=== PATIENT | male | born 1995 | race Caucasian/White ===

== ENCOUNTER 2020-08-06 11:42 | Emergency (ER) | payer OTHER, MEDICAID, SELFPAY ==
[2020-08-06 11:44] VITALS: BP 142/91; PULSE 113; RESP 12; TEMP 36.7; O2SAT 98; BMI 14.8
--- NOTE | 2020-08-06 12:09 | CT_ITS ---
WS: [id number] CT ABDOMEN AND PELVIS NONCONTRAST HISTORY: fever, abdominal pain TECHNIQUE: Imaging performed through the abdomen and pelvis. Coronal and sagittal reformats are submi tted. All CT scans at [facility] use at least one of these dose optimization techniques: automated exposure control; mA and/or kV adjustment per patient size (includes targeted exams where d ose is matched to clinical indication); or iterative reconstruction. DLP: 233.82 mGy.cm COMPARISON: None available. This study is compromised by significant motion. Lower thorax: There is a large dense round consolidation with spiculated margins in possible central necrosis in the LEFT lower lobe measuring 4.5 x 4.3 cm. Normal size heart. Liver: As visualized no abnormality. Gallbladder: Normal gallbladder. Pancreas: Poorly visualized. Spleen: Normal. Adrenal glands: Not visualized. Right kidney: No obstruction or hydronephrosis. Poorly visualized due to motion. Left kidney: No obstruction or hydronephrosis. Poorly visualized. Hypodense area in the central kidne y could be an area of nephritis. Aorta: Normal abdominal aorta, no aneurysm or atherosclerosis. No free fluid, intraperitoneal air or significant lymphadenopathy. GI tract: Diffuse constipation and obstipation. No obvious obstruction. Abdominal wall: Negative. No hernia. Pelvis: Normal. Osseous structures: Thoracolumbar scoliosis. CT/CT abdomen pelvis wo con [id number] IMPRESSION: 1. Quality of this examination is significantly limited by motion. 2. Dense area of rounded consolidation in the LEFT lower lobe. Masslike consol idation. With the patient's history and age differential includes pneumonia and neoplasm. Recommend follow-up imaging after treatment to ensure resolution and underlying mass. 3. Focal area of low attenuation in the LEFT kidney. Correlate for possible ne phritis. 4. Severe obstipation. Notified Vivian Kim MD [facility] [place] 08/06/2020 12:55 PM.
--- NOTE | 2020-08-06 12:09 | XR_ITS ---
WS: [id number] Portable AP upright chest, 08/06/2020 Clinical Data: fever Comparison: None. Findings: There is a patchy opacity in the left lower lobe obscuring the diaphragm which may represen t pneumonia and/or atelectasis. No effusion is seen. There are no nodules or masses. The heart is nor mal. There is a dextroscoliosis of the mid thoracic spine. No pneumothorax is seen. XR/XR chest 1V portable [id number] Impression: 1. Patchy opacity in left lower lobe which may represent atelectasis and/or pne umonia. 2. Normal heart and right lung.
[2020-08-06 12:18] VITALS: BP 135/80; PULSE 111; O2SAT 95
[2020-08-06 12:40] LABS: Basophils # 0.1 10^3/uL (0.0-0.1); Basophils % 0.5 %; Eosinophils # 0.1 10^3/uL (0.0-0.8); Eosinophils % 0.3 %; Hematocrit 45.1 % (42.0-52.0); Hemoglobin 14.3 g/dL (11.7-16.6); Lymphocytes # 1.5 10^3/uL (0.8-4.8); Mean Corpuscular HGB Conc 31.7 g/dL (30.0-36.0); Mean Corpuscular Hemoglobin 30.1 pg (28.0-34.0); Mean Corpuscular Volume 94.9 fL (80-94); Mean Platelet Volume 8.5 fL (7.4-10.4); Monocytes # 2.7 10^3/uL (0.2-0.9); Monocytes % 16.2 %; Neutrophils # 12.06 10^3/uL (1.8-7.7); Neutrophils % 73.7 %; Nucleated Red Blood Cells % 0 %; Platelet Count 223 10^3/cmm (130-400); Red Blood Count 4.75 10^6/uL (4.1-5.3); Red Cell Distribution Width 12.4 % (12.1-15.1); White Blood Count 16.4 10^3/uL (4.0-10.0)
--- NOTE | 2020-08-06 12:40 | ED_ITS ---
HPI - Anxiety General: Chief Complaint: Fever Stated Complaint: OFF AND ON FEVER SINCE . AB PAIN Time Seen by Provider: 08/06/20 11:56 Source: family (father) Mode of arrival: wheelchair Limitations: other (Patient with cerebral palsy) History of Present Illness: HPI narrative: The patient is a 25-year-old male with a history of cerebral palsy and who was brought into the emergency department by his father due to abdominal pain and fever. Fever started about 4 days ago and has been intermittent, they have been checking his pulse oximetry and he he has been saturating normally but his heart rate has been elevated. He also complained of left-sided abdominal pain. No nausea or vomiting. No diarrhea. He has been having regular bowel movements but the father says sev eral years ago he had similar symptoms and was constipated at the time so they have given him magnesium citrate even though his bowel movements have been normal. Because of the continued pain they brought him in to be evaluated. Associated symptoms: Reports fever(s); Deny vomiting Review of Systems General: Reports: ROS unobtainable due to medical condition Const: Reports: fever(s) GI: Reports: abdominal pain; Denies: vomiting, diarrhea or constipation Physical Exam Const: COMMON NORMALS: no acute distress, average body habitus, no limitations, healthy appearing, alert and well nourished HENMT: COMMON NORMALS: normocephalic, atraumatic and moist oral mucous membranes HEAD & SCALP: normocephalic and atraumatic Neck/C-Spine: COMMON NORMALS: no JVD Chest: COMMONS NORMALS: normal inspection of the chest and normal palpation of entire chest wall Resp: COMMON NORMALS: normal respiratory effort, No retractions, No use of accessory muscles, clear to auscultation bilaterally and percussion normal AUSCULTATION: clear to auscultation bilaterally PERCUSSION: percussion normal Cardio: COMMON NORMALS: no JVD, regular rate, regular rhythm, S1 normal heart sound present, S2 normal heart sound present, No gallops present (Cardio), No clicks present (Cardio), No murmurs present (Cardio), No rub (Cardio) and Peripheral pulses 2+ throughout RATE: regular rate RHYTHM: regular rhythm HEART SOUNDS: S1 normal heart sound present and S2 normal heart sound present PERIPHERAL PULSES: Peripheral pulses 2+ throughout GI: COMMON NORMALS: Normal to inspection, nondistended, normoactive bowel sounds present, Soft to palpation, non-tender, No hepatosplenomegaly present, no masses and no bruits PALPATION: Yes Soft to palpation and Yes No hepatosplenomegaly present : COMMON NORMALS: Yes no CVA tenderness BLADDER/KIDNEY EXAM: Yes no CVA tenderness Back/Pelvis: COMMON NORMALS: no CVA tenderness Extremity: COMMON NORMALS: normal to inspection, full ROM, capillary refill normal, no calf tenderness and no pedal edema Neuro: SENSORIUM/ORIENTATION: Yes alert Course Vital Signs: Vital signs: Vital Signs Temperature 98.0 F 08/06/20 11:44 Pulse Rate 104 H 08/06/20 15:44 Respiratory Rate 12 08/06/20 11:44 Blood Pressure 131/68 08/06/20 15:44 Pulse Oximetry 98 08/06/20 15:44 MDM - Anxiety MDM Narrative: Medical decision making narrative: This 25-year-old gentleman who has cerebral palsy was brought into the emergency department by his father with complaints of a fever and abdominal pain. Because of his cerebral palsy evaluation is difficult and he moves during imaging and during blood draws. His father did not want us to put in an IV and after his initial blood draw was only good for lactic acid and CBC his father did not want us to stick him anymore. He was also tested for influenza and COVID-19 and both were negative. Urinalysis was negative for UTI. Imaging showed left lower lobe pneumonia and possible nephritis, however because his UA is negative I will treat him only for the pneumonia. Discussed treatment options with the father including inpatient versus outpatient. He father opted for the patient to be treated outpatient. He is discharged home with a prescription for levofloxacin for 7 days. The father was strongly counseled to bring the patient back if his symptoms get any worse or if he does not get significantly better. He is also to repeat the chest x-ray in about 2 weeks to ensure that this is actually pneumonia and not a mass. The father voiced understanding and is in agreement with the plan. Medical Records: Attestation: I reviewed the patient's medical records. Imaging Data^: CT Abd/Pel: Attestation: I personally reviewed and interpreted this imaging study as follows: Radiologist's impression: [address] [address] [address] Scan Report Signed Patient: Su WOOD #: [id number] : 1995Acct#:[id number] Age/Sex: 25 / MADM Date: 08/06/20 Loc: ERRoom/Bed: Attending Dr: Ordering Provider/Ordering MD: Vivian Kim MD, GIANCARLO Date of Service: 08/06/20 Procedure(s): CT abdomen pelvis wo con [id number] Accession Number(s): [id number] Report Number: [id number] WS: [id number] CT ABDOMEN AND PELVIS NONCONTRAST HISTORY: fever, abdominal pain TECHNIQUE: Imaging performed through the abdomen and pelvis. Coronal and sagittal reformats are submitted. All CT scans at [facility] use at least one of these dose optimization techniques: automated exposure control; mA and/or kV adjustment per patient size (includes targeted exams where dose is matched to clinical indication); or iterative reconstruction. DLP: 233.82 mGy.cm COMPARISON: None available. This study is compromised by significant motion. Lower thorax: There is a large dense round consolidation with spiculated margins in possible central necrosis in the LEFT lower lobe measuring 4.5 x 4.3 cm. Normal size heart. Liver: As visualized no abnormality. Gallbladder: Normal gallbladder. Pancreas: Poorly visualized. Spleen: Normal. Adrenal glands: Not visualized. Right kidney: No obstruction or hydronephrosis. Poorly visualized due to motion. Left kidney: No obstruction or hydronephrosis. Poorly visualized. Hypodense area in the central kidney could be an area of nephritis. Aorta: Normal abdominal aorta, no aneurysm or atherosclerosis. No free fluid, intraperitoneal air or significant lymphadenopathy. GI tract: Diffuse constipation and obstipation. No obvious obstruction. Abdominal wall: Negative. No hernia. Pelvis: Normal. Osseous structures: Thoracolumbar scoliosis. CT/CT abdomen pelvis wo con [id number] IMPRESSION: 1. Quality of this examination is significantly limited by motion. 2. Dense area of rounded consolidation in the LEFT lower lobe. Masslike consolidation. With the patient's history and age differential includes pneumonia and neoplasm. Recommend follow-up imaging after treatment to ensure resolution and underlying mass. 3. Focal area of low attenuation in the LEFT kidney. Correlate for possible nephritis. 4. Severe obstipation. Notified Vivian Kim MD [facility] [place] at 08/06/2020 12:55 PM. Dictated By:Glendy Mandujano DO Signed By:Glendy Mandujano DOSigned Date/Time:08/06/205 DD/ 47 CXR: Attestation: I personally reviewed and interpreted this imaging study as follows: Radiologist's impression: [address] [address] XRay Report Signed Patient: Su WOOD #: [id number] : 1995Acct#:[id number] Age/Sex: 25 / MADM Date: 08/06/20 Loc: ERRoom/Bed: Attending Dr: Ordering Provider/Ordering MD: Vivian Kim MD, [facility] [place] Date of Service: 08/06/20 Procedure(s): XR chest 1V portable [id number] Accession Number(s): [id number] Report Number: [id number] WS: [id number] Portable AP upright chest, 08/06/2020 Clinical Data: fever Comparison: None. Findings: There is a patchy opacity in the left lower lobe obscuring the diaphragm which may represent pneumonia and/or atelectasis. No effusion is seen. There are no nodules or masses. The heart is normal. There is a dextroscoliosis of the mid thoracic spine. No pneumothorax is seen. XR/XR chest 1V portable [id number] Impression: 1. Patchy opacity in left lower lobe which may represent atelectasis and/or pneumonia. 2. Normal heart and right lung. Dictated By:Alicia Tomas MD Signed By:Alicia Tomas MDSigned Date/Time:08/06/20 125 DD/ 47 Lab Data: Attestation: I reviewed the patient's lab results. Labs: Lab Results 08/06/20 08/06/20 08/06/20 Range/Units 12:20 12:20 12:20 WBC 16.4 H (4.0-10.0) 10^3/ uL RBC 4.75 (4.1-5.3) 10^6/u L Hgb 14.3 (11.7-16.6) g/dL Hct 45.1 (42.0-52.0) % MCV 94.9 H (80-94) fL MCH 30.1 (28.0-34.0) pg MCHC 31.7 (30.0-36.0) g/dL RDW 12.4 (12.1-15.1) % Plt Count 223 (130-400) 10^3/c mm MPV 8.5 (7.4-10.4) fL Neut % (Auto) 73.7 % Lymph % (Auto) 9.0 % [place] % (Auto) 16.2 % Eos % (Auto) 0.3 % Baso % (Auto) 0.5 % Neut # (Auto) 12.06 H (1.8-7.7) 10^3/u L Lymph # (Auto) 1.5 (0.8-4.8) 10^3/u L [place] # (Auto) 2.7 H (0.2-0.9) 10^3/u L Eos # (Auto) 0.1 (0.0-0.8) 10^3/u L Baso # (Auto) 0.1 (0.0-0.1) 10^3/u L Nucleated RBC % (a uto) 0 % Nucleated RBCs # 0.0 /100WBC Sodium Cancelled Potassium Cancelled Chloride Cancelled Carbon Dioxide Cancelled Anion Gap Cancelled BUN Cancelled Creatinine Cancelled GFR Calculation Cancelled Glucose Cancelled Calculated Osmolal ity Cancelled Lactate 1.4 (0.5-2.2) mmol/L Calcium Cancelled Total Bilirubin Cancelled AST Cancelled ALT Cancelled Alkaline Phosphata se Cancelled C-Reactive Protein Cancelled Total Protein Cancelled Albumin Cancelled Globulin Cancelled Lipase Cancelled Procalcitonin Cancelled Urine Color (Yellow) Urine Appearance (CLEAR) Urine pH (5-7) Ur Specific Gravit y (1.005-1.030) Urine Protein (Negative) Urine Glucose (UA) (Normal) Urine Ketones (Negative) Urine Blood (Negative) Urine Nitrate (Negative) Urine Bilirubin (Negative) Urine Urobilinogen (Negative) mg/dL Ur Leukocyte Wendy ase (Negative) Urine RBC (0-2) /hpf Urine WBC (0-5) /hpf Ur Squamous Epith Cells (0-5) /hpf Amorphous Sediment Urine Bacteria (NONE) /hpf Urine Mucus /hpf Influenza Type A A g (Negative) Influenza Type B A g (Negative) SARS-CoV-2 Ag (Rap id) (Negative) 08/06/20 08/06/20 08/06/20 Range/Units 12:20 12:20 14:00 WBC (4.0-10.0) 10^3/ uL RBC (4.1-5.3) 10^6/u L Hgb (11.7-16.6) g/dL Hct (42.0-52.0) % MCV (80-94) fL MCH (28.0-34.0) pg MCHC (30.0-36.0) g/dL RDW (12.1-15.1) % Plt Count (130-400) 10^3/c mm MPV (7.4-10.4) fL Neut % (Auto) % Lymph % (Auto) % [place] % (Auto) % Eos % (Auto) % Baso % (Auto) % Neut # (Auto) (1.8-7.7) 10^3/u L Lymph # (Auto) (0.8-4.8) 10^3/u L [place] # (Auto) (0.2-0.9) 10^3/u L Eos # (Auto) (0.0-0.8) 10^3/u L Baso # (Auto) (0.0-0.1) 10^3/u L Nucleated RBC % (a uto) % Nucleated RBCs # /100WBC Sodium Potassium Chloride Carbon Dioxide Anion Gap BUN Creatinine GFR Calculation Glucose Calculated Osmolal ity Lactate (0.5-2.2) mmol/L Calcium Total Bilirubin AST ALT Alkaline Phosphata se C-Reactive Protein Total Protein Albumin Globulin Lipase Procalcitonin Urine Color Yellow (Yellow) Urine Appearance Sl hazy (CLEAR) Urine pH 7 (5-7) Ur Specific Gravit y 1.010 (1.005-1.030) Urine Protein Trace (Negative) Urine Glucose (UA) Norm (Normal) Urine Ketones 1+ H (Negative) Urine Blood Neg (Negative) Urine Nitrate Negative (Negative) Urine Bilirubin 1+ H (Negative) Urine Urobilinogen Norm (Negative) mg/dL Ur Leukocyte Wendy ase Negative (Negative) Urine RBC 0-4 H (0-2) /hpf Urine WBC 0-4 H (0-5) /hpf Ur Squamous Epith Cells 0-4 H (0-5) /hpf Amorphous Sediment Not Reportable Urine Bacteria 1+ H (NONE) /hpf Urine Mucus 3+ /hpf Influenza Type A A g Negative (Negative) Influenza Type B A g Negative (Negative) SARS-CoV-2 Ag (Rap id) Negative (Negative) Discharge Plan Discharge Patient Disposition: Home Clinical Impression: Obstipation Left lower lobe pneumonia Qualifiers: Pneumonia type: due to unspecified organism Qualified Code(s): J18.9 - Pneumonia, unspecified organism Condition: Stable Prescriptions: New levofloxacin 250 mg/10 mL solution 500 mg PO DAILY 7 Days Qty: 200 RF: 0 Continued baclofen 10 mg tablet 15 mg PO BID@09,22 RF: 0 magnesium citrate Solution See Rx Instructions .ROUTE .COMPLEX RF: 0 montelukast 10 mg tablet 10 mg PO DAILY@22 RF: 0 divalproex 125 mg capsule, delayed rel sprinkle See Rx Instructions .ROUTE .COMPLEX RF: 0 Claritin 10 mg Tablet 10 mg PO DAILY@09 RF: 0 Maryruths Liquid Multimineral See Rx Instructions .ROUTE .COMPLEX RF: 0 Maryruths Liquid Vitamins See Rx Instructions .ROUTE .COMPLEX RF: 0 Discharge Orders: Discharge ED (Routine); Ordered 08/06/20 Ordered By: Vivian Kim Discharge Diet: Usual diet Discharge Activity: Resume usual activity Patient Instructions: Community-acquired Pneumonia (ED), Obstipation (ED) Activity Restrictions/Additional Instructions: Return for any new or worsening symptoms. Give him the antibiotics as prescribed. Also continue with the magnesium citrate as he has severe constipation. You may also want to try stool softener to assist with bowel movements. Coding Level of Care Code ED Cake Press Operator for Christina Fwd Exam Comprehensive
[2020-08-06 12:46] VITALS: BP 136/88; PULSE 114; O2SAT 97
[2020-08-06 12:57] LABS: Lactate (Lactic Acid level) 1.4 mmol/L (0.5-2.2)
[2020-08-06 13:04] VITALS: BP 141/86; PULSE 111; O2SAT 97
[2020-08-06 13:17] LABS: Influenza A by IFA Negative (Negative); Influenza B by IFA Negative (Negative); SARS Covid-2 Antigen Negative (Negative)
[2020-08-06 14:38] VITALS: BP 112/67; PULSE 107; O2SAT 98
[2020-08-06 15:03] LABS: Add Urine Microscopic? YES; Bilirubin Urine 1+ (Negative); Blood Urine Neg (Negative); Glucose Urine UA Norm (Normal); Ketones Urine 1+ (Negative); Leukocyte Esterase Urine Negative (Negative); Nitrate Urine Negative (Negative); Protein Urine Trace (Negative); Urine Appearance SL Hazy (CLEAR); Urine Color Yellow (Yellow); Urobilinogen Urine Norm (Negative); pH Urine 7 (5-7)
[2020-08-06 15:10] LABS: RBC Urine 0-4 /hpf (0-2)
[2020-08-06 15:11] LABS: Add Urine Culture? No; Bacteria Urine 1+ /hpf; Mucus Urine 3+ /hpf; Squamous Epithelial Cell Urine 0-4 /hpf (0-5); WBC Urine 0-4 /hpf (0-5)
[2020-08-06 15:44] VITALS: BP 131/68; PULSE 104; O2SAT 98
== END 2020-08-06 15:45 | disposition home or self-care (01) ==
PROVIDERS: Emergency Provider Family Medicine
DX: J18.9 Pneumonia, unspecified organism (principal); K59.00 Constipation, unspecified
CPT/HCPCS: 12345; 71045; 74176; 81001; 83605; 85025; 87426; 87804; 99281; 99283

== ENCOUNTER 2020-08-12 00:19 | Emergency (ER) | payer OTHER, SELFPAY ==
[2020-08-12] VITALS (26 sets, daily range): BP systolic 114–139; BP diastolic 59–107; PULSE 108–155; RESP 18–31; TEMP 36.7–37; O2SAT 89–97; BMI 14.8
--- NOTE | 2020-08-12 00:22 | XRR_ITS ---
PROCEDURE INFORMATION: Exam: XR Complete Acute Abdomen Series Exam date and time: 08/12/2020 12:31 AM Age: 25 years old Clinical indication: Abdominal pain; Generalized; Patient HX: C/O abd pain with diarrhea. Diagnosed with pneumonia last Sunday. Currently on abx. Treatment. History of cerebral palsy. Best positioning obtained. ; Additional info: Pneumonia, abdominal pain TECHNIQUE: Imaging protocol: XR complete acute abdomen series, including 2 or more views of the abdomen and a single view chest. COMPARISON: CR XR chest 1V portable [id number] 08/06/2020 12:14 PM FINDINGS: Lungs: There is dense consolidation in the left lower lobe, similar in extent and distribution to the findings on 08/06/2020. There are new bubbly lucencies within the consolidated region suggesting pneumatoceles. The right lung is clear. Pleural spaces: There is no pleural effusion or pneumothorax. Heart/Mediastinum: Cardiomediastinal contours are unremarkable. Gastrointestinal tract: Normal. No bowel dilation. Intraperitoneal space: Normal. No free air. Bones/joints: Mild convex left lumbar scoliosis. Dysmorphic hips. No acute fracture. Soft tissues: Normal. XR/XR acute abdomen series [id number] IMPRESSION: Persistent left lower lobe consolidation consistent with infection.
--- NOTE | 2020-08-12 00:49 | W.ED.ABDPA2 ---
Documented by User: JOE Bermeo 08/12/20 03:19 HPI - Abdominal Pain General: Chief Complaint: Abdominal Pain Stated Complaint: ab pain Time Seen by Provider: 08/12/20 00:23 Source: patient and family (father) Mode of arrival: wheelchair Limitations: language barrier, physical limitation and other (Cerebral palsy) History of Present Illness: HPI narrative: 25-year-old male patient is brought in with his father to the emergency room for concern of abdominal pain. Medical history includes at 28 weeks gestation, cerebral palsy. He is cared for at home by his parents. His father states recently evaluated in the ED for illness, diagnosed with left lower lobe pneumonia, continues on Levaquin as antibiotic. He reports after discharge from the ED last week, Jarvis seemed to improve over the following days. He then started to experience abdominal pain with return of fever, low-grade on and off. His father reports diarrhea, noted as 2 bowel movements daily, denies hematochezia. He reports administering 1 to 2 ounces of mag citrate daily for constipation, states Jarvis has experienced nausea but no vomiting. He ate a normal meal tonight, cheeseburger, macaroni and cheese and beans. His father reports he watches his heart rate go from 70-140, heart rate elevates as his pain occurs. His father states he is concerned Jarvis may have atrial fibrillation as his father was diagnosed with atrial fib at an early age. He states pain is completely out of character for him. CT scan completed 08/06/2020 revealed dense area of rounded consolidation in the left lower lobe, focal area of low attenuation in the left kidney. MD elicited complaint: abdominal pain Pertinent past history: constipation and other (CP, pneumonia, left lower lobe) Onset (ago): day(s) (7) Pain Consistency: intermittent Location: RLQ and LLQ Severity: moderate Exacerbating factors: nothing Relieving factors: nothing Associated Symptoms: Reports change in stool character, constipation, diarrhea, fever(s) and nausea; Denies chills, dysuria, heartburn, hematemesis and vomiting Treatments prior to arrival: other (Magnesium citrate, Levaquin) Review of Systems General: Reports: 10 or more systems reviewed and unremarkable except in HPI and below Const: Reports: fever(s); Denies: chills, fatigue, malaise or diaphoresis Eyes: Denies: blurry vision or eye redness ENMT: Denies: throat pain, dental pain or disequilibrium Card: Denies: chest pain, palpitations, irregular heart rhythm, lightheadedness, dyspnea on exertion or orthopnea Resp: Denies: dyspnea, productive cough, non-productive cough, wheezing, change in phlegm color or chest congestion GI: Reports: abdominal pain, nausea, diarrhea, constipation and change in stool character; Denies: vomiting, hematemesis or heartburn : Denies: dysuria, urinary urgency or urinary incontinence Musc: Reports: back pain (lower left) and joint pain; Denies: neck pain, joint stiffness, muscle cramps or muscle weakness Skin/Breast: Denies: rash or pruritus Neuro: Denies: headache(s), weakness in extremities or behavioral changes Psych: Reports: anxiety (with episodes of pain) and irritability; Denies: sleeping more or change in appetite Neo/Lymph: Denies: easy bruising PFSH ED PFSH: Medical History (Updated 08/12/20 @ 08:20 by Mishel Soler MD) Cerebral palsy Left lower lobe pneumonia Obstipation Wheelchair confinement status Family History Father Atrial fibrillation Grandfather Cardiomyopathy Social History Smoking and tobacco status: never smoked Alcohol intake: never Substance/Drug Use: never Adopted: No Caregiver/support person: Yes Lives independently: No Household members: family Housing: House Marital status: Single Physical Exam Const: COMMON NORMALS: no acute distress, alert and well nourished EXAM LIMITATIONS: physical limitations GENERAL APPEARANCE: cooperative, well kempt, well developed and anxious NUTRITIONAL APPEARANCE: thin ORIENTATION/CONSCIOUSNESS: Yes awake and Yes oriented to person HENMT: COMMON NORMALS: normocephalic, atraumatic, Normal external nose present and moist oral mucous membranes HEAD & SCALP: normal to inspection, normocephalic and atraumatic NOSE: Normal external nose present and Normal nares present THROAT: uvula midline and other (Gingival hypertrophy noted) Eye: COMMON NORMALS: Equal, round and reactive pupils present and EOMs intact bilaterally GENERAL EYE: appearance normal, both eyes and all related structures PUPIL: Yes Equal, round and reactive pupils present Neck/C-Spine: COMMON NORMALS: full ROM, no lymphadenopathy and no meningeal signs GENERAL: Yes normal visual inspection and Yes trachea midline CERVICAL SPINE: Yes cervical ROM normal Lymph: LYMPHATIC: no lymphadenopathy noted Chest: COMMONS NORMALS: normal inspection of the chest and normal palpation of entire chest wall Resp: COMMON NORMALS: normal respiratory effort, No retractions, No use of accessory muscles and clear to auscultation bilaterally EFFORT & INSPECTION: No labored and No audible wheezes AUSCULTATION: clear to auscultation bilaterally Cardio: COMMON NORMALS: regular rhythm, S1 normal heart sound present, S2 normal heart sound present and Peripheral pulses 2+ throughout RATE: tachycardic RHYTHM: regular rhythm HEART SOUNDS: S1 normal heart sound present and S2 normal heart sound present PERIPHERAL PULSES: Peripheral pulses 2+ throughout GI: COMMON NORMALS: Soft to palpation INSPECTION: Yes normal to inspection, No abdominal wall ecchymosis, No abdominal distension, No central obesity, No visible herniation and No Fluid wave present PALPATION: Yes Soft to palpation and Yes Tenderness to palpation present (GI) Details: LLQ and RLQ PERCUSSION: no fluid wave Back/Pelvis: COMMON NORMALS: thoracic and lumbar spine normal to inspection GENERAL BACK: Yes CVA tenderness CVA tenderness: left Extremity: COMMON NORMALS: normal to inspection and capillary refill normal Neuro: COMMON NORMALS: moves all extremities SENSORIUM/ORIENTATION: Yes alert and Yes oriented to person MENINGEAL SIGNS: Yes no meningeal signs SPEECH: expressive aphasia MOTOR EXAM: Abnormal motor strength present (upper extremties 4/5, BLE 2/5) Psych: APPEARANCE: Yes grossly normal and Yes well kempt ACTIVITY/MOTOR BEHAVIOR: Yes appropriate eye contact SPEECH: Yes Other speech symptoms (limited) MOOD & AFFECT: Yes anxious Skin: COMMON NORMALS: no rashes or lesions noted and turgor normal GENERAL SKIN EXAM: no rashes or lesions noted and turgor normal Course Vital Signs: Vital signs: Vital Signs Temperature 98.6 F 08/12/20 00:25 Pulse Rate 130 H 08/12/20 07:40 Respiratory Rate 20 H 08/12/20 07:40 Blood Pressure 116/70 08/12/20 07:40 Pulse Oximetry 92 08/12/20 07:40 MDM - Abdominal Pain MDM Narrative: Medical decision making narrative: 25-year-old male patient with cerebral palsy presents to the emergency department with his father, father reports concern of abdominal pain, states Jarvis was screaming out in pain which is out of character for him. He continues to run low-grade fever, continues with intermittent abdominal pain that has worsened tonight. Jarvis continues on Levaquin for treatment for left lower lobe pneumonia, previous CT scan completed 08/06/2020 revealed dense area of rounded consolidation in the left lower lobe, masslike consolidation with differential including pneumonia and neoplasm. There is also focal low-attenuation in the left kidney. He received 2 mg of morphine 4 mg of Zofran here in the ED, pain was controlled and nausea resolved. Serology testing with white blood count decreased to 10.4 thousand, lipase normal, lactic acid 1.6, D-dimer was elevated at 2.96 with Wells criteria for PE 3.0. EKG revealed tachycardia consistent with pulmonary disease, right ventricular hypertrophy. Case discussed with Dr. Soler, CTA chest, CT abdomen pelvis currently pending. Differential Diagnosis: Differential diagnosis abdominal pain: Likely abdominal pain, acute appendicitis, calculus of kidney and small bowel obstruction Lab Data: Attestation: I reviewed the patient's lab results. Labs: Lab Results 08/12/20 08/12/20 08/12/20 Range/Units 00:54 00:54 00:54 WBC 10.4 H (4.0-10.0) 10^3/ uL RBC 4.30 (4.1-5.3) 10^6/u L Hgb 12.6 (11.7-16.6) g/dL Hct 38.5 L (42.0-52.0) % MCV 89.5 (80-94) fL MCH 29.3 (28.0-34.0) pg MCHC 32.7 (30.0-36.0) g/dL RDW 13.1 (12.1-15.1) % Plt Count 285 (130-400) 10^3/c mm MPV 8.2 (7.4-10.4) fL Neut % (Auto) 72.1 % Lymph % (Auto) 9.8 % Cavalier % (Auto) 15.7 % Eos % (Auto) 0.9 % Baso % (Auto) 0.9 % Neut # (Auto) 7.52 (1.8-7.7) 10^3/u L Lymph # (Auto) 1.0 (0.8-4.8) 10^3/u L Cavalier # (Auto) 1.6 H (0.2-0.9) 10^3/u L Eos # (Auto) 0.1 (0.0-0.8) 10^3/u L Baso # (Auto) 0.1 (0.0-0.1) 10^3/u L Nucleated RBC % (a uto) 0 % Nucleated RBCs # 0.0 /100WBC D-Dimer (0-0.59) ug/mIFE U Sodium 141 (136-145) mmol/L Potassium 4.8 (3.5-5.1) mmol/L Chloride 102 (98-107) mmol/L Carbon Dioxide 28 (22-29) mmol/L Anion Gap 15.8 (5-19) BUN 17 (6-20) mg/dL Creatinine 0.4 L (0.7-1.2) mg/dL GFR Calculation 266.6 H (90-130) mL/min Glucose 101 (65-115) mg/dL Calculated Osmolal ity 294 (285-295) mOsm/k g Lactate (0.5-2.2) mmol/L Calcium 9.1 (8.5-10.5) mg/dL Total Bilirubin 0.2 (0.15-1.2) mg/dL AST 47 H (0-40) U/L ALT 43 H (0-41) U/L Alkaline Phosphata se 266 H (40-130) IU/L Total Protein 6.3 L (6.6-8.7) g/dL Albumin 3.2 L (3.5-5.2) g/dL Globulin 3.1 (1.3-4.6) g/dL Lipase 21 (13-60) U/L Valproic Acid 62.8 (50-100) ug/mL 08/12/20 08/12/20 Range/Units 00:54 00:54 WBC (4.0-10.0) 10^3/ uL RBC (4.1-5.3) 10^6/u L Hgb (11.7-16.6) g/dL Hct (42.0-52.0) % MCV (80-94) fL MCH (28.0-34.0) pg MCHC (30.0-36.0) g/dL RDW (12.1-15.1) % Plt Count (130-400) 10^3/c mm MPV (7.4-10.4) fL Neut % (Auto) % Lymph % (Auto) % Cavalier % (Auto) % Eos % (Auto) % Baso % (Auto) % Neut # (Auto) (1.8-7.7) 10^3/u L Lymph # (Auto) (0.8-4.8) 10^3/u L Cavalier # (Auto) (0.2-0.9) 10^3/u L Eos # (Auto) (0.0-0.8) 10^3/u L Baso # (Auto) (0.0-0.1) 10^3/u L Nucleated RBC % (a uto) % Nucleated RBCs # /100WBC D-Dimer 2.96 H (0-0.59) ug/mIFE U Sodium (136-145) mmol/L Potassium (3.5-5.1) mmol/L Chloride (98-107) mmol/L Carbon Dioxide (22-29) mmol/L Anion Gap (5-19) BUN (6-20) mg/dL Creatinine (0.7-1.2) mg/dL GFR Calculation (90-130) mL/min Glucose (65-115) mg/dL Calculated Osmolal ity (285-295) mOsm/k g Lactate 1.6 (0.5-2.2) mmol/L Calcium (8.5-10.5) mg/dL Total Bilirubin (0.15-1.2) mg/dL AST (0-40) U/L ALT (0-41) U/L Alkaline Phosphata se (40-130) IU/L Total Protein (6.6-8.7) g/dL Albumin (3.5-5.2) g/dL Globulin (1.3-4.6) g/dL Lipase (13-60) U/L Valproic Acid (50-100) ug/mL Imaging Data ^: Other Xray: Radiologist's impression: [id number] [address] XRay Report Signed Patient: Emily Del Cid #: [id number] : 1995Acct#:[id number] Age/Sex: 25 / MADM Date: 08/12/20 Loc: ERRoom/Bed: Attending Dr: Ordering Provider/Ordering MD: Libertad Han Date of Service: 08/12/20 Procedure(s): XR acute abdomen series 46543 Accession Number(s): [id number] Report Number: [id number] PROCEDURE INFORMATION: Exam: XR Complete Acute Abdomen Series Exam date and time: 08/12/2020 12:31 AM Age: 25 years old Clinical indication: Abdominal pain; Generalized; Patient HX: C/O abd pain with diarrhea. Diagnosed with pneumonia last Sunday. Currently on abx. Treatment. History of cerebral palsy. Best positioning obtained. ; Additional info: Pneumonia, abdominal pain TECHNIQUE: Imaging protocol: XR complete acute abdomen series, including 2 or more views of the abdomen and a single view chest. COMPARISON: CR XR chest 1V portable [id number] 08/06/2020 12:14 PM FINDINGS: Lungs: There is dense consolidation in the left lower lobe, similar in extent and distribution to the findings on 08/06/2020. There are new bubbly lucencies within the consolidated region suggesting pneumatoceles. The right lung is clear. Pleural spaces: There is no pleural effusion or pneumothorax. Heart/Mediastinum: Cardiomediastinal contours are unremarkable. Gastrointestinal tract: Normal. No bowel dilation. Intraperitoneal space: Normal. No free air. Bones/joints: Mild convex left lumbar scoliosis. Dysmorphic hips. No acute fracture. Soft tissues: Normal. XR/XR acute abdomen series [id number] IMPRESSION: Persistent left lower lobe consolidation consistent with infection. Dictated By:Bobby Fatima MD Signed By:Bobby Fatima MDSigned Date/Time:08/12/20146 DD/ 4 Discharge Plan Discharge Patient Disposition: er Intermediate Care 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 Abdominal pain Qualifiers: Abdominal location: generalized Qualified Code(s): R10.84 - Generalized abdominal pain Condition: Stable Prescriptions: No Action baclofen 10 mg tablet 15 mg PO BID@,22 RF: 0 magnesium citrate Solution See Rx Instructions .ROUTE .COMPLEX RF: 0 montelukast 10 mg tablet 10 mg PO DAILY@ RF: 0 divalproex 125 mg capsule, delayed rel sprinkle See Rx Instructions .ROUTE .COMPLEX RF: 0 Claritin 10 mg Tablet 10 mg PO DAILY@09 RF: 0 Maryruths Liquid Multimineral See Rx Instructions .ROUTE .COMPLEX RF: 0 Maryruths Liquid Vitamins See Rx Instructions .ROUTE .COMPLEX RF: 0 levofloxacin 250 mg/10 mL solution 500 mg PO DAILY 7 Days Qty: 200 RF: 0 Discharge Orders: Transfer Out of Facility (Order); Ordered 08/12/20 Ordered By: Mishel Soler Patient Instructions: Abdominal Pain (ED) Sign Out Sign Out Data: Sign Out Comment: Transfer of care to Dr Soler, CTA chest, CT abd/pelvis pending, morphine effective with pain control, nausea resolved with use of Zofran. CT results pending. Last updated by Libertad Han ARNP at 08/12/20 03:10 Coding Level of Care Code ED Collaborating Supervising Physician for Chg Fwd Exam Comprehensive Documented by User: Mishel Soler MD 08/12/20 08:22 HPI - Abdominal Pain General: Chief Complaint: Abdominal Pain Stated Complaint: ab pain Time Seen by Provider: 08/12/20 00:23 [facility] ED PFS: Medical History (Updated 08/12/20 @ 08:20 by Mishel Soler MD) Cerebral palsy Left lower lobe pneumonia Obstipation Wheelchair confinement status Family History Father Atrial fibrillation Grandfather Cardiomyopathy Social History Smoking and tobacco status: never smoked Alcohol intake: never Substance/Drug Use: never Adopted: No Caregiver/support person: Yes Lives independently: No Household members: family Housing: House Marital status: Single Course Vital Signs: Vital signs: Vital Signs Temperature 98.6 F 08/12/20 00:25 Pulse Rate 130 H 08/12/20 07:40 Respiratory Rate 20 H 08/12/20 07:40 Blood Pressure 116/70 08/12/20 07:40 Pulse Oximetry 92 08/12/20 07:40 MDM - Abdominal Pain MDM Narrative: Medical decision making narrative: 25-year-old male with a history of cerebral palsy presenting with worsened left lobe infiltrate, now appearing to be more like a pulmonary abscess. He has frequent painful coughing spells during which he becomes very tachycardic and his O2 sats drop. He was treated with Rocephin and Flagyl, IV fluid, analgesics. We do not have any thoracic surgery services here, and evacuation via thoracotomy is likely what the patient will need considering the size of the abscess and the failure to respond to a course of oral antibiotics. Discussed the case with Dr. Corrales at [facility]. And she accepts the admission, patient will be transported by ground. At this time his heart rate is 117, O2 sats 95% on 3 L nasal cannula. His pain is slightly improved after being given lorazepam which seemed to work better than the opiates. Discussed the findings and plan of care several times in detail with the patient's father who is in agreement with transfer. Medical Records: Attestation: I reviewed the patient's medical records. Lab Data: Attestation: I reviewed the patient's lab results. Labs: Lab Results 08/12/20 08/12/20 08/12/20 Range/Units 00:54 00:54 00:54 WBC 10.4 H (4.0-10.0) 10^3/ uL RBC 4.30 (4.1-5.3) 10^6/u L Hgb 12.6 (11.7-16.6) g/dL Hct 38.5 L (42.0-52.0) % MCV 89.5 (80-94) fL MCH 29.3 (28.0-34.0) pg MCHC 32.7 (30.0-36.0) g/dL RDW 13.1 (12.1-15.1) % Plt Count 285 (130-400) 10^3/c mm MPV 8.2 (7.4-10.4) fL Neut % (Auto) 72.1 % Lymph % (Auto) 9.8 % Cavalier % (Auto) 15.7 % Eos % (Auto) 0.9 % Baso % (Auto) 0.9 % Neut # (Auto) 7.52 (1.8-7.7) 10^3/u L Lymph # (Auto) 1.0 (0.8-4.8) 10^3/u L Cavalier # (Auto) 1.6 H (0.2-0.9) 10^3/u L Eos # (Auto) 0.1 (0.0-0.8) 10^3/u L Baso # (Auto) 0.1 (0.0-0.1) 10^3/u L Nucleated RBC % (a uto) 0 % Nucleated RBCs # 0.0 /100WBC D-Dimer (0-0.59) ug/mIFE U Sodium 141 (136-145) mmol/L Potassium 4.8 (3.5-5.1) mmol/L Chloride 102 (98-107) mmol/L Carbon Dioxide 28 (22-29) mmol/L Anion Gap 15.8 (5-19) BUN 17 (6-20) mg/dL Creatinine 0.4 L (0.7-1.2) mg/dL GFR Calculation 266.6 H (90-130) mL/min Glucose 101 (65-115) mg/dL Calculated Osmolal ity 294 (285-295) mOsm/k g Lactate (0.5-2.2) mmol/L Calcium 9.1 (8.5-10.5) mg/dL Total Bilirubin 0.2 (0.15-1.2) mg/dL AST 47 H (0-40) U/L ALT 43 H (0-41) U/L Alkaline Phosphata se 266 H (40-130) IU/L Total Protein 6.3 L (6.6-8.7) g/dL Albumin 3.2 L (3.5-5.2) g/dL Globulin 3.1 (1.3-4.6) g/dL Lipase 21 (13-60) U/L Valproic Acid 62.8 (50-100) ug/mL 08/12/20 08/12/20 Range/Units 00:54 00:54 WBC (4.0-10.0) 10^3/ uL RBC (4.1-5.3) 10^6/u L Hgb (11.7-16.6) g/dL Hct (42.0-52.0) % MCV (80-94) fL MCH (28.0-34.0) pg MCHC (30.0-36.0) g/dL RDW (12.1-15.1) % Plt Count (130-400) 10^3/c mm MPV (7.4-10.4) fL Neut % (Auto) % Lymph % (Auto) % Cavalier % (Auto) % Eos % (Auto) % Baso % (Auto) % Neut # (Auto) (1.8-7.7) 10^3/u L Lymph # (Auto) (0.8-4.8) 10^3/u L Cavalier # (Auto) (0.2-0.9) 10^3/u L Eos # (Auto) (0.0-0.8) 10^3/u L Baso # (Auto) (0.0-0.1) 10^3/u L Nucleated RBC % (a uto) % Nucleated RBCs # /100WBC D-Dimer 2.96 H (0-0.59) ug/mIFE U Sodium (136-145) mmol/L Potassium (3.5-5.1) mmol/L Chloride (98-107) mmol/L Carbon Dioxide (22-29) mmol/L Anion Gap (5-19) BUN (6-20) mg/dL Creatinine (0.7-1.2) mg/dL GFR Calculation (90-130) mL/min Glucose (65-115) mg/dL Calculated Osmolal ity (285-295) mOsm/k g Lactate 1.6 (0.5-2.2) mmol/L Calcium (8.5-10.5) mg/dL Total Bilirubin (0.15-1.2) mg/dL AST (0-40) U/L ALT (0-41) U/L Alkaline Phosphata se (40-130) IU/L Total Protein (6.6-8.7) g/dL Albumin (3.5-5.2) g/dL Globulin (1.3-4.6) g/dL Lipase (13-60) U/L Valproic Acid (50-100) ug/mL Discharge Plan Discharge Patient Disposition: Xfer Intermediate Care 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 Abdominal pain Qualifiers: Abdominal location: generalized Qualified Code(s): R10.84 - Generalized abdominal pain Condition: Stable Prescriptions: No Action baclofen 10 mg tablet 15 mg PO BID@09,22 RF: 0 magnesium citrate Solution See Rx Instructions .ROUTE .COMPLEX RF: 0 montelukast 10 mg tablet 10 mg PO DAILY@22 RF: 0 divalproex 125 mg capsule, delayed rel sprinkle See Rx Instructions .ROUTE .COMPLEX RF: 0 Claritin 10 mg Tablet 10 mg PO DAILY@09 RF: 0 Maryruths Liquid Multimineral See Rx Instructions .ROUTE .COMPLEX RF: 0 Maryruths Liquid Vitamins See Rx Instructions .ROUTE .COMPLEX RF: 0 levofloxacin 250 mg/10 mL solution 500 mg PO DAILY 7 Days Qty: 200 RF: 0 Discharge Orders: Transfer Out of Facility (Order); Ordered 08/12/20 Ordered By: Mishel Soler Patient Instructions: Abdominal Pain (ED) Sign Out Sign Out Data: Sign Out Comment: Transfer of care to Dr Soler, CTA chest, CT abd/pelvis pending, morphine effective with pain control, nausea resolved with use of Zofran. CT results pending. Last updated by Libertad Han ARNP at 08/12/20 03:10 Coding Level of Care Code ED Collaborating Supervising Physician for Chg Fwd Exam Comprehensive
--- NOTE | 2020-08-12 00:55 | ECG_ITS ---
[facility] Test Date: 2020-08-12 Pat Name: Jarvis Del Cid Department: Room: Gender: Male Lead Software Development Engineer: : 1995 Requested By: Libertad Cornelius Order Number: [id number] Marlon MD: Arlen Jack M.D. Measurements Intervals [place] Rate: 126 P: 99 MO: 116 QRS: 242 QRSD: 89 T: 119 QT: 304 QTc: 440 Interpretive Statements SINUS TACHYCARDIA WITH SHORT MO INTERVAL PATTERN CONSISTENT WITH PULMONARY DISEASE RIGHT VENTRICULAR HYPERTROPHY [SOME/ALL OF: PROMINENT R IN V1, LATE TRANSITION, RAD, JAYSON, SSS] No previous ECG available for comparison Electronically Signed On 08-12-2020 7:25:31 DIRECTOR WEIGHTS AND MEASURES by Arlen Jack M.D. [email or web address]
[2020-08-12 01:11] LABS: Basophils # 0.1 10^3/uL (0.0-0.1); Basophils % 0.9 %; Eosinophils # 0.1 10^3/uL (0.0-0.8); Eosinophils % 0.9 %; Hematocrit 38.5 % (42.0-52.0); Hemoglobin 12.6 g/dL (11.7-16.6); Lymphocytes % 9.8 %; Mean Corpuscular HGB Conc 32.7 g/dL (30.0-36.0); Mean Corpuscular Hemoglobin 29.3 pg (28.0-34.0); Mean Corpuscular Volume 89.5 fL (80-94); Mean Platelet Volume 8.2 fL (7.4-10.4); Monocytes # 1.6 10^3/uL (0.2-0.9); Monocytes % 15.7 %; Neutrophils # 7.52 10^3/uL (1.8-7.7); Neutrophils % 72.1 %; Nucleated Red Blood Cells % 0 %; Platelet Count 285 10^3/cmm (130-400); Red Cell Distribution Width 13.1 % (12.1-15.1); White Blood Count 10.4 10^3/uL (4.0-10.0)
[2020-08-12 01:31] LABS: D Dimer 2.96 ug/mIFEU (0-0.59)
[2020-08-12 01:37] LABS: Alanine Aminotransferase 43 U/L (0-41); Albumin Level 3.2 g/dL (3.5-5.2); Alkaline Phosphatase 266 IU/L (40-130); Anion Gap 15.8 (5-19); Aspartate Amino Transferase 47 U/L (0-40); Blood Urea Nitrogen 17 mg/dL (6-20); Calcium 9.1 mg/dL (8.5-10.5); Carbon Dioxide 28 mmol/L (22-29); Chloride 102 mmol/L (98-107); Globulin 3.1 g/dL (1.3-4.6); Glomerular Filtration Rate 266.6 mL/min (90-130); Glucose 101 mg/dL (65-115); Lipase 21 U/L (13-60); Osmolality Calculated 294 mOsm/kg (285-295); Potassium 4.8 mmol/L (3.5-5.1); Sodium 141 mmol/L (136-145); Total Bilirubin 0.2 mg/dL (0.15-1.2); Total Protein 6.3 g/dL (6.6-8.7)
[2020-08-12 01:38] LABS: Valproic Acid Level 62.8 ug/mL (50-100)
--- NOTE | 2020-08-12 01:41 | CTR_ITS ---
PROCEDURE INFORMATION: Exam: CT Angiography Chest With Contrast Exam date and time: 08/12/2020 2:23 AM Age: 25 years old Clinical indication: Abdominal pain; Generalized; Cough; Other: N/a; Patient HX: C/O abd pain with diarrhea. Currently on antibiotics for pneumonia. Elevated d dimer. History of cerebral palsy. Unable to follow breathings instructions. ; Additional info: Abdominal pain with elevated d-dimer TECHNIQUE: Imaging protocol: Computed tomographic angiography of the chest with contrast. 3D rendering (Not supervised by radiologist): MIP and/or 3D reconstructed images were created by the technologist. Radiation optimization: All CT scans at this facility use at least one of these dose optimization techniques: automated exposure control; mA and/or kV adjustment per patient size (includes targeted exams where dose is matched to clinical indication); or iterative reconstruction. Contrast material: OMNI 350; Contrast volume: 75 ml; Contrast route: INTRAVENOUS (IV); COMPARISON: CR XR acute abdomen series [id number] 08/12/2020 1:00 AM RADIATION DOSE METRICS: Total DLP (mGy-cm): 1122.99 FINDINGS: Pulmonary arteries: Normal. No pulmonary emboli. Aorta: Unremarkable. No aortic aneurysm. No aortic dissection. Lungs: A heterogenous round opacity is present in the left lobe lobe containing cavitations in fluid levels with surrounding infiltrates. As compared to the report of the previous CT of the abdomen it appears to be larger. Pleural spaces: Unremarkable. No pneumothorax. No pleural effusion. Heart: Unremarkable. No cardiomegaly. No pericardial effusion. Lymph nodes: Unremarkable. No enlarged lymph nodes. Bones/joints: Kyphoscoliosis is present. No acute fracture. Soft tissues: Unremarkable. IMPRESSION: 1. Negative for pulmonary embolism. Negative for aortic aneurysm or dissection. 2. Complex opacity in the left lower lobe appears larger as compared to previous examination consistent with consolidation versus mass. PROCEDURE INFORMATION: Exam: CT Abdomen And Pelvis With Contrast Exam date and time: 08/12/2020 2:23 AM Age: 25 years old Clinical indication: Abdominal pain; Generalized; Cough; Other: N/a; Patient HX: C/O abd pain with diarrhea. Currently on antibiotics for pneumonia. Elevated d dimer. History of cerebral palsy. Unable to follow breathings instructions. ; Additional info: Abdominal pain with elevated d-dimer TECHNIQUE: Imaging protocol: Computed tomography of the abdomen and pelvis with contrast. Radiation optimization: All CT scans at this facility use at least one of these dose optimization techniques: automated exposure control; mA and/or kV adjustment per patient size (includes targeted exams where dose is matched to clinical indication); or iterative reconstruction. Contrast material: OMNI 350; Contrast volume: 75 ml; Contrast route: INTRAVENOUS (IV); COMPARISON: CR XR acute abdomen series [id number] 08/12/2020 1:00 AM RADIATION DOSE METRICS: Total DLP (mGy-cm): 1122.99 FINDINGS: Liver: Normal. No mass. Gallbladder and bile ducts: Normal. No calcified stones. No ductal dilation. Pancreas: Normal. No ductal dilation. Spleen: Is mildly enlarged measuring 13.4 cm in length. Adrenal glands: Normal. No mass. Kidneys and ureters: Normal. No hydronephrosis. Stomach and bowel: Unremarkable. No obstruction. Moderate amount of fecal residue is seen in the colon. Appendix: The appendix is not discretely seen. Intraperitoneal space: Unremarkable. No free air. No significant fluid collection. Vasculature: Unremarkable. No abdominal aortic aneurysm. Lymph nodes: Unremarkable. No enlarged lymph nodes. Urinary bladder: Unremarkable as visualized. Reproductive: Unremarkable as visualized. Bones/joints: Kyphoscoliosis is present. No acute fracture. Soft tissues: Unremarkable. CT/CT angio chest w abd pel w con IMPRESSION: No acute findings. Radiation Dose CTDIVOL = (mGy): DLP = 1122.99~1122.99 (mGy-cm)
[2020-08-12 01:42] LABS: Lactate (Lactic Acid level) 1.6 mmol/L (0.5-2.2)
[2020-08-12] MEDS: morphine 4 mg/mL SDV 1 mL 2 MG IVP (01:50)
[2020-08-12] MEDS: ondansetron 2 mg/ML SDV 2 mL 4 MG IVP (01:51)
[2020-08-12] MEDS: sodium chloride 0.9% 1,000 ML 999 ML IV (01:52)
[2020-08-12] MEDS: iohexol 350 mg/mL 100 mL Btl IV (03:04)
[2020-08-12] MEDS: fentaNYL 50 mcg/mL INJ 2mL IVP ×2 (05:44→06:47)
[2020-08-12] MEDS: cefTRIAXone 1,000 MG in sodium chloride 0.9% (plus) 50 ML 100 MG IV (05:56)
[2020-08-12] MEDS: LORazepam 2 mg/mL INJ 1 mL 1 MG IVP (07:30)
--- NOTE | 2020-08-12 07:46 | XR_ITS ---
WS: [id number] Portable AP upright chest, 08/12/2020 Clinical Data: syncope Comparison: Portable chest, 08/06/2020. Findings: There is an opacity in the left lower lobe probably represents a complex pneumonia. There i s a small left effusion. The right lung is clear. The heart is normal. There is a dextroscoliosis of the thoracic spine. Monitor leads are on the chest wall. XR/XR chest 1V portable [id number] Impression: 1. Complex left lower lobe consolidation which may represent pneumonia. 2. Small left effusion.
[2020-08-12] MEDS: metroNIDAZOLE IV 500 MG/100 ML PREMIX 100 MG IV (07:48)
--- NOTE | 2020-08-12 07:48 | PC.NURSE ---
pt placed on 3lpm of o2 via nasal cannula after ativan adm due to pulse ox maintaining 88-89%. notified
--- NOTE | 2020-08-12 07:52 | PC.NURSE ---
Pt assessed at shift change. Pt HR elevated at 130s, RR anywhere from 18-26. Pt has a wet, non-productive cough and is unable to expectorate sputum. Pt father at bedside and reports pt is normally strong enough to cough up any phlegm. Pt father reports pt has recently had PNE and treated for that. Pt has clear upper lobes bilaterally and some rhonchi noted to bilateral lower lobes, left worse than right with sonorous expirations in the left lower lobe. Pt has active BS in all quadrants. Pt wears a brief and is incontinent. Pt is very restless and placed on oxygen for lowered saturations. Pt now up to 4LNC. Pt has call light in reach and father updated on wait for call from [facility] regarding possible transfer. CXR performed at bedside.
[2020-08-12 09:10] LABS: SARS Covid-2 Antigen Negative (Negative)
--- NOTE | 2020-08-12 09:13 | PC.NURSE ---
Called [facility] transfer line and spoke with Shi regarding pt triage info. All questions answered, confirmed Dr Corrales as admitting physician to [facility] in [facility]. Relayed all pertinent lab and VS information, including negative COVID result. Per Shi, will call with bed assignment.
--- NOTE | 2020-08-12 09:23 | PC.NURSE ---
Rounded on pt, pt noted to have removed his oxygen. Pt was noted to be 94% on room air. Pt titrated to 2LNC for comfort and pain med administration.
[2020-08-12] MEDS: morphine 4 mg/mL SDV 1 mL IVP (09:28)
--- NOTE | 2020-08-12 09:38 | PC.NURSE ---
Oxygen probe changed to right hand, sats 97% on 2LNC
--- NOTE | 2020-08-12 09:40 | PC.NURSE ---
Pt resting more comfortably after Morphine. Pt with no acute reaction noted. Pt is no longer restless, HR decreased to 114, pt not crying out in pain.
--- NOTE | 2020-08-12 11:04 | PC.NURSE ---
Pt clothing and linens changed d/t incontinence. Pt tolerated well
[2020-08-12] MEDS: morphine 4 mg/mL SDV 1 mL 2 MG IM (11:29)
== END 2020-08-12 11:35 | disposition intermediate care facility (04) ==
PROVIDERS: Family Medicine; Emergency Provider Nurse Practitioner Family
DX: J85.1 Abscess of lung with pneumonia (principal); R10.84 Generalized abdominal pain; G80.0 Spastic quadriplegic cerebral palsy; R07.81 Pleurodynia; Z99.3 Dependence on wheelchair
CPT/HCPCS: 12345; 71045; 71275; 74022; 74177; 80053; 80164; 83605; 83690; 84484; 85025; 85378; 87426; 93005; 96365; 96367; 96375; 96376; 99291; J0696; J2060; J2270; J2405; J3010; J7030; Q9967; S0030

== ENCOUNTER 2022-10-11 14:54 | Outpatient (CLI) | payer OTHER, MEDICAID, SELFPAY ==
--- NOTE | 2022-10-11 15:20 | XR_ITS ---
WS: [id number] EXAMINATION: XR shoulder RT min 2V* [id number] REASON FOR EXAM: Pain in right shoulder COMPARISON: None available. ORDER DATE: 10/11/2022 3:24 PM TECHNIQUE: Nonstandard 2 views with internal and external rotation limits evaluation of some osseous structures. X-RAY FINDINGS: No fractures evident. Glenohumeral joint unremarkable Acromioclavicular joint appears unremarkable. Limited visualization of the adjacent hemithorax is unremarkable. XR/XR shoulder RT min 2V* [id number] IMPRESSION: No fractures. Due to nonstandard projection cannot entirely exclude subluxation or dislocation.
== END 2022-10-11 14:55 | disposition home or self-care (01) ==
PROVIDERS: PCP Family Medicine; Visit Provider Nurse Practitioner Family
DX: M25.511 Pain in right shoulder (principal)
CPT/HCPCS: 73030

== ENCOUNTER 2022-11-09 12:04 | Emergency (ER) | payer OTHER, MEDICAID, SELFPAY ==
[2022-11-09 12:09] VITALS: PULSE 101; RESP 18; O2SAT 98
--- NOTE | 2022-11-09 12:44 | XR_ITS ---
WS: [id number] Left hand, 3 views, 11/09/2022 Clinical Data: pain and swelling Comparison: None. Findings: There is an oblique fracture of the midshaft of the left third metacarpal. The soft tissues are unrem arkable. The joint spaces are normal XR/XR hand LT min 3V* [id number] Impression: Fracture of the midshaft of the left third metacarpal.
--- NOTE | 2022-11-09 12:48 | W.ED.EXTPRO ---
HPI - Extremity Problem General: Chief complaint: Extremity Injury, Upper Stated complaint: hand injury Time Seen by Provider: 11/09/22 12:39 History of Present Illness: Patient is a 27-year-old male who comes to the ED with left hand pain and swelling. Patient has cerebral palsy and is nonverbal. Patient's parents are present and providing history. Patient will occasionally sit in wheelchair and put his left arm underneath his leg. 2 days ago he pulled his left arm out from under his left leg and there was a pop and pain in his left hand. The next day everything seemed all right and he was not complaining of much pain and did not have much swelling either. Today patient woke up and had some ecchymosis and swelling in left hand and was complaining more of pain. He has not had any Tylenol or ibuprofen before coming to the ED. Denies any other injuries or traumas to the left hand. Associated symptoms: Deny chest pain, fever(s) or rash Review of Systems Const: Denies: fever(s), chills or fatigue Eyes: Denies: change in vision or eye discomfort ENMT: Denies: throat pain, odynophagia, nasal discharge or nasal congestion Card: Denies: chest pain, palpitations, edema, swelling of feet/ankles, dyspnea on exertion or orthopnea Resp: Denies: dyspnea, productive cough or non-productive cough GI: Denies: abdominal pain, nausea, vomiting, diarrhea, constipation or hematochezia : Denies: flank pain, difficulty urinating, dysuria or hematuria Musc: Reports: extremity pain (Left hand) and extremity swelling (Left hand); Denies: neck pain or back pain Skin/Breast: Denies: rash or new lesions Neuro: Denies: headache(s), numbness in extremities or weakness in extremities [facility] ED PFSH: Medical History Cerebral palsy Left lower lobe pneumonia Obstipation Wheelchair confinement status Family History Father Atrial fibrillation Grandfather Cardiomyopathy Social History Smoking and tobacco status: never smoked Alcohol intake: never Substance/Drug Use: never Adopted: No Caregiver/support person: Yes Lives independently: No Household members: family Housing: House Marital status: Single Physical Exam Const: COMMON NORMALS: no acute distress, patient oriented x3 and alert HENMT: COMMON NORMALS: normocephalic HEAD & SCALP: normocephalic MOUTH: Normal oral and palatal mucosa present THROAT: posterior oropharynx normal and uvula midline Neck/C-Spine: COMMON NORMALS: supple GENERAL: Yes normal visual inspection Resp: COMMON NORMALS: normal respiratory effort, No retractions, No use of accessory muscles and clear to auscultation bilaterally AUSCULTATION: clear to auscultation bilaterally Cardio: COMMON NORMALS: regular rate, regular rhythm, S1 normal heart sound present, S2 normal heart sound present, No gallops present (Cardio), No clicks present (Cardio), No murmurs present (Cardio) and Peripheral pulses 2+ throughout RATE: regular rate RHYTHM: regular rhythm HEART SOUNDS: S1 normal heart sound present and S2 normal heart sound present PERIPHERAL PULSES: Peripheral pulses 2+ throughout GI: COMMON NORMALS: Normal to inspection, nondistended, normoactive bowel sounds present, Soft to palpation, non-tender and no masses PALPATION: Yes Soft to palpation : COMMON NORMALS: Yes no CVA tenderness BLADDER/KIDNEY EXAM: Yes no CVA tenderness Back/Pelvis: COMMON NORMALS: no CVA tenderness Extremity: NARRATIVE EXTREMITY EXAM: Left hand?ecchymosis and swelling to dorsal aspect of hand. No visible deformities noted and some tenderness to palpation. No warmth or any wounds noted on hand. Full range of motion. neurovascular intact as well. Neuro: COMMON NORMALS: patient oriented x3 SENSORIUM/ORIENTATION: Yes alert GAIT: Yes Normal gait present Skin: GENERAL SKIN EXAM: dry skin Course Vital Signs: Vital signs: Vital Signs Pulse Rate 101 H 11/09/22 12:09 Respiratory Rate 18 11/09/22 12:09 Pulse Oximetry 98 11/09/22 12:09 Oxygen Delivery Me thod Room Air 11/09/22 12:09 MDM - Extremity (Nontraumatic) Medical Decision Making Patient is a 27-year-old male who comes to the ED with left hand pain and swelling. Patient has cerebral palsy and is nonverbal. Patient's parents are present and providing history. Patient will occasionally sit in wheelchair and put his left arm underneath his leg. 2 days ago he pulled his left arm out from under his left leg and there was a pop and pain in his left hand. Vital stable. Left hand?ecchymosis and swelling to dorsal aspect of hand. No visible deformities noted and some tenderness to palpation. No warmth or any wounds noted on hand. Full range of motion. neurovascular intact as well. Left hand x-ray shows fracture midshaft of left third metacarpal. I placed an order with case management for patient be referred to Ortho for follow-up on metacarpal fracture. Patient was put in an ulnar gutter splint and was stable for discharge home. Patient was sent home with the prescription for hydrocodone to help with acute pain. Patient's parents understood and agreed with plan. Lab Data I reviewed the patient's lab results. Radiology Impressions Hand X-Ray 11/09/22 12:44 Impression: Fracture of the midshaft of the left third metacarpal. Discharge Plan Discharge Patient Disposition: Home Clinical Impression: Fracture of metacarpal Qualifiers: Encounter type: initial encounter Metacarpal bone: third Fracture type: closed Metacarpal location: shaft Fracture alignment: nondisplaced Laterality: left Qualified Code(s): S62.353A - Nondisplaced fracture of shaft of third metacarpal bone, left hand, initial encounter for closed fracture Condition: Stable Prescriptions: No Action (DME) Wheelchair replacement parts See Rx Instructions .Route .MEDSUPPLY Qty: 1 0RF Rx Instructions: Headrest, side laterals, armrests, Hip guards, seat & back cushion. Reclining mechanism repair. Left foot rest attachment bar. Foot huggers divalproex 125 mg capsule, delayed rel sprinkle See Rx Instructions .ROUTE .COMPLEX Qty: 270 12RF Rx Instructions: 5 cap po daily@09:00 and 4 cap po daily@22:00 baclofen 10 mg tablet 15 mg PO TID Qty: 120 4RF magnesium citrate Solution See Rx Instructions .ROUTE .COMPLEX Rx Instructions: 2 - 3 oz po once montelukast 10 mg tablet 10 mg PO DAILY@22 Claritin 10 mg Tablet 10 mg PO DAILY@09 Maryruths Liquid Multimineral See Rx Instructions .ROUTE .COMPLEX Rx Instructions: 1 oz po qpm Maryruths Liquid Vitamins See Rx Instructions .ROUTE .COMPLEX Rx Instructions: 1 oz po qam Discharge Orders: Discharge ED (Routine); Ordered 11/09/22 Ordered By: Donny Can Referrals: Donny Qureshi MD [Primary Care Provider] - Discharge Diet: Regular Discharge Activity: Limit activity as instructed Patient Instructions: Hand Fracture (ED) Activity Restrictions/Additional Instructions: Follow-up with medical provider as directed. Case management should be contacted in the next several days to set up an appointment with Ortho for follow-up on fracture. Keep splint on and dry and limit activity with left hand. Take medications as prescribed. Return to the ER or your medical provider if condition worsens. Please read and understand discharge instructions. Thank you for choosing [facility] for your healthcare needs today. Please realize this is an emergency room and that we are providing you with a medical screening exam and this may not be complete and all inclusive of all the testing and or work up that you may need to determine your ailment or severity of your illness. It is very important that you follow up as instructed or that you return to the Emergency Department should you have concerns or if your condition changes or worsens in any way. Coding Level of Care Code ED Aerial [employer]ator Pilot for Christina Barrera
[2022-11-09] MEDS: ibuprofen 600 mg Tablet PO (12:50)
--- NOTE | 2022-11-09 14:26 | DCPLANNER ---
Addendum entered by Claudia Mark 11/15/22 11:09: ethics manager had a follow up appointment scheduled with ortho - patient did attend appointment. Original Note: ethics manager had message to schedule a follow up appointment for patient with ortho. ethics manager sent patients information to the front office staff at ortho. Patients information will be printed and reviewed. Clinic will call patient with appointment information.
== END 2022-11-09 13:54 | disposition home or self-care (01) ==
PROVIDERS: Emergency Provider Physician Assistant; PCP Family Medicine
DX: S62.353A Nondisplaced fracture of shaft of third metacarpal bone, left hand, initial encounter for closed fracture (principal); G80.9 Cerebral palsy, unspecified; Z99.3 Dependence on wheelchair; X50.9XXA Other and unspecified overexertion or strenuous movements or postures, initial encounter
CPT/HCPCS: 73130; 99283

== ENCOUNTER → 2022-11-15 11:02 | Outpatient (BNVA) | payer OTHER, MEDICAID, SELFPAY | PROVIDERS: PCP Family Medicine; Referring Provider Physician Assistant; Visit Provider Specialist | DX: S62.323A Displaced fracture of shaft of third metacarpal bone, left hand, initial encounter for closed fracture (principal); X50.9XXA Other and unspecified overexertion or strenuous movements or postures, initial encounter | CPT/HCPCS: 73130 ==

== ENCOUNTER 2022-11-15 14:57 | Outpatient (CLI) | payer OTHER, MEDICAID, SELFPAY | END 2022-11-15 14:58 | disposition home or self-care (01) | LOC: SPT 14:58 | PROVIDERS: PCP Family Medicine; Visit Provider Specialist | DX: Z46.89 Encounter for fitting and adjustment of other specified devices (principal); S62.393D Other fracture of third metacarpal bone, left hand, subsequent encounter for fracture with routine healing; X58.XXXD Exposure to other specified factors, subsequent encounter | CPT/HCPCS: 97760; L3984 ==

== ENCOUNTER → 2022-11-16 11:52 | Outpatient (BNVA) | payer OTHER, MEDICAID, SELFPAY | PROVIDERS: PCP Family Medicine; Visit Provider Clinical Nurse Specialist Adult Health | DX: J06.9 Acute upper respiratory infection, unspecified (principal); Z20.822 Contact with and (suspected) exposure to COVID-19 | CPT/HCPCS: 87426 ==

== ENCOUNTER 2022-11-20 12:07 | Outpatient (CLI) | payer OTHER, MEDICAID, SELFPAY ==
[2022-11-20 12:58] LABS: Basophils # 0.1 10^3/uL (0.0-0.1); Basophils % 0.7 %; Eosinophils # 0.6 10^3/uL (0.0-0.8); Eosinophils % 6.6 %; Hematocrit 45.5 % (42.0-52.0); Hemoglobin 14.9 g/dL (11.7-16.6); Lymphocytes # 1.6 10^3/uL (0.8-4.8); Lymphocytes % 16.8 %; Mean Corpuscular HGB Conc 32.7 g/dL (30.0-36.0); Mean Corpuscular Hemoglobin 30.5 pg (28.0-34.0); Mean Platelet Volume 8.5 fL (7.4-10.4); Monocytes % 10.4 %; Neutrophils # 6.29 10^3/uL (1.8-7.7); Neutrophils % 65.3 %; Nucleated Red Blood Cells % 0 %; Platelet Count 206 10^3/cmm (130-400); Red Blood Count 4.89 10^6/uL (4.1-5.3); Red Cell Distribution Width 12.9 % (12.1-15.1); White Blood Count 9.6 10^3/uL (4.0-10.0)
[2022-11-20 13:40] LABS: 25 Hydroxy Vitamin D 53 ng/mL (30-100); Alanine Aminotransferase 18 U/L (0-41); Albumin Level 4.2 g/dL (3.5-5.2); Alkaline Phosphatase 76 U/L (40-130); Anion Gap 16.2 (5-19); Aspartate Amino Transferase 22 U/L (0-40); Blood Urea Nitrogen 19 mg/dL (6-20); Calcium 9.5 mg/dL (8.5-10.5); Carbon Dioxide 27 mmol/L (22-29); Chloride 103 mmol/L (98-107); Globulin 3.6 g/dL (1.3-4.6); Glomerular Filtration Rate 262.1 mL/min (90-130); Glucose 88 mg/dL (65-115); Iron 82 ug/dL (59-158); Magnesium 1.9 mg/dL (1.7-2.3); Osmolality Calculated 294 mOsm/kg (285-295); Percent Saturation 34.1 % (20-50); Potassium 5.2 mmol/L (3.5-5.1); Sodium 141 mmol/L (136-145); Total Bilirubin 0.3 mg/dL (0.15-1.2); Total Iron Binding Capacity 240 mcg/dl; Total Protein 7.8 g/dL (6.6-8.7); Unsaturated Iron Binding 158 ug/dL (112-347); Vitamin B12 1090 pg/mL (232-1245)
[2022-11-23 10:54] LABS: Zinc Level, Serum or Plasma 87 mcg/dL (60-130)
== END 2022-11-20 12:08 | disposition home or self-care (01) ==
LOC: LAB 12:12
PROVIDERS: PCP Family Medicine; Visit Provider Family Medicine
DX: E55.9 Vitamin D deficiency, unspecified (principal); G80.9 Cerebral palsy, unspecified; M79.10 Myalgia, unspecified site; R53.81 Other malaise; R53.83 Other fatigue
CPT/HCPCS: 36415; 80053; 82306; 82607; 83540; 83550; 83735; 84443; 84630; 85025

== ENCOUNTER → 2022-11-22 14:30 | Outpatient (BNVA) | payer OTHER, MEDICAID, SELFPAY | PROVIDERS: PCP Family Medicine; Visit Provider Specialist | DX: S62.323A Displaced fracture of shaft of third metacarpal bone, left hand, initial encounter for closed fracture (principal); X58.XXXA Exposure to other specified factors, initial encounter | CPT/HCPCS: 73130 ==

== ENCOUNTER → 2022-12-06 10:00 | Outpatient (BNVA) | payer OTHER, MEDICAID, SELFPAY | PROVIDERS: PCP Family Medicine; Visit Provider Nurse Practitioner Family | DX: S62.323A Displaced fracture of shaft of third metacarpal bone, left hand, initial encounter for closed fracture; X58.XXXA Exposure to other specified factors, initial encounter | CPT/HCPCS: 73130 ==

== ENCOUNTER → 2022-12-11 14:45 | Outpatient (BNVA) | payer OTHER, MEDICAID, SELFPAY | PROVIDERS: PCP Family Medicine; Visit Provider Specialist | DX: S62.323D Displaced fracture of shaft of third metacarpal bone, left hand, subsequent encounter for fracture with routine healing (principal); X58.XXXD Exposure to other specified factors, subsequent encounter | CPT/HCPCS: 73130 ==

== ENCOUNTER → 2023-01-08 13:10 | Outpatient (BNVA) | payer OTHER, MEDICAID, SELFPAY | PROVIDERS: PCP Family Medicine; Visit Provider Specialist | DX: S62.323D Displaced fracture of shaft of third metacarpal bone, left hand, subsequent encounter for fracture with routine healing (principal); X58.XXXD Exposure to other specified factors, subsequent encounter | CPT/HCPCS: 73130 ==

== ENCOUNTER → 2023-02-05 13:43 | Outpatient (BNVA) | payer OTHER, MEDICAID, SELFPAY | PROVIDERS: PCP Family Medicine; Visit Provider Specialist | DX: S62.323D Displaced fracture of shaft of third metacarpal bone, left hand, subsequent encounter for fracture with routine healing; X58.XXXD Exposure to other specified factors, subsequent encounter; G80.9 Cerebral palsy, unspecified | CPT/HCPCS: 73130 ==

== ENCOUNTER 2023-04-19 13:29 | Outpatient (RCR) | payer OTHER, MEDICAID, SELFPAY | END 2023-05-01 23:59 | disposition home or self-care (01) | LOC: SPT 13:29 | PROVIDERS: Visit Provider Family Medicine | DX: G80.9 Cerebral palsy, unspecified (principal) | CPT/HCPCS: 97161 ==

== ENCOUNTER 2023-05-02 06:00 | Outpatient (RCR) | payer OTHER, MEDICAID, SELFPAY | END 2023-05-31 23:59 | disposition home or self-care (01) | LOC: SPT 06:00 | PROVIDERS: Visit Provider Family Medicine | DX: G80.0 Spastic quadriplegic cerebral palsy (principal) | CPT/HCPCS: 97167 ==